=== PATIENT | male | born 1945 | race Caucasian/White ===

== ENCOUNTER 2019-10-20 07:14 | Day surgery (SDC) | payer MEDICARE, OTHER ==
[2019-10-20] MEDS ORDERED: Sodium Chloride 0.9% 1,000 ML IV SCH (07:45)
[2019-10-20] MEDS ORDERED: Propofol 200 MG/20 ML SDV ONE ×2 (09:03→09:47)
[2019-10-20] MEDS ORDERED: Midazolam 1 MG/ML 2 ML SDV ONE (09:03)
[2019-10-20] MEDS ORDERED: fentaNYL 100 MCG/2 ML SDV ONE (09:03)
--- NOTE | 2019-10-20 10:07 | PCM.PRGIL ---
Lower GI Endoscopy Procedure Procedure:: Reports: Colonoscopy Intervention:: Polypectomy Polyp (cm):: 40 Performed By:: Arturo Miles Referred By:: Dai Banegas Date of Service:: 10/20/19 Informed Consent Obtained?: Yes Indications:: Reports: Hx of Colon CA/Polyps Rectodigital Exam:: Reports: Normal Exam Rectodigital Exam Comments:: Prostate surgically absent Sedation:: Reports: IV Depth Reached (Location):: Reports: Cecum Landmarks:: Reports: Cecum, Ileocecal Valve - Findings Rectal:: Reports: Normal, Other (Prostate surgically absent) Hemorrhoids:: Reports: Internal Condyloma:: Reports: None Colitis (Location):: Reports: None Polyps (location):: Reports: Sigmoid Polyps location Comment:: 40cm and 10cm Polyp Type:: Reports: Flat, Pedunculated Mass (Location):: Reports: None Previous Colon Surgery (Location):: Reports: None Stenosis (Location):: Reports: None Complications:: Reports: None Cultures:: Reports: None
--- NOTE | 2019-10-28 06:29 | LETTER ---
10/27/2019 Hitesh López. RE: HITESH LÓPEZ : 1945 Dear Mr. López: This letter concerns results of pathology from polyps removed at the time of your colonoscopy last week. 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 This is a type of polyp that over several years could potentially develop into a colon cancer. There was no evidence of cancerous changes noted at this time. I recommend that you have a follow-up colonoscopy in 3 years. If you have any questions concerning these results or recommendation, please feel free to contact me. Sincerely, /[id number]
== END 2019-10-20 11:15 | disposition home or self-care (01) ==
LOC: JP.SDS 07:14
PROVIDERS: ATTEND Hospitalist
DX: Z12.11 Encounter for screening for malignant neoplasm of colon (principal); D12.5 Benign neoplasm of sigmoid colon; D12.8 Benign neoplasm of rectum; K64.8 Other hemorrhoids; I10 Essential (primary) hypertension; Z85.038 Personal history of other malignant neoplasm of large intestine; Z90.79 Acquired absence of other genital organ(s); Z87.891 Personal history of nicotine dependence; Z88.8 Allergy status to other drugs, medicaments and biological substances
CPT/HCPCS: 45380; 88305; J2250; J2704; J3010; J7030